=== PATIENT | female | born 1950 | race African-American/Black ===

== ENCOUNTER 2016-11-15 13:36 | Emergency (ER) | payer MEDICARE ==
[2016-11-15] MEDS ORDERED: HYDROcodone/Acetaminophen 7.5/325 mg Tablet ONE ×2 (14:06→14:10)
--- NOTE | 2016-11-15 15:44 | PICIS ---
[facility] EMERGENCY RECORD TRIAGE (13:47 LCAS) TRIAGE NOTES: chronic issue that developed 10-15years. Wednesday had injection. patient reports been given Tylenol #4, but not working anymore. reports that the doctor won't give her pain meds anymore. patient reports she has come here today for relief. (13:47 LCAS) PATIENT: NAME: Casper Orellana, AGE: 65, GENDER: female, : Mon 1950, TIME OF GREET: Sun Nov 15, 2016 13:37, PREFERRED LANGUAGE: Estonian, ETHNICITY: Not or , ECODE BILLING MAP: [facility], SSN: [id number], Zip Code: [address], KG WEIGHT: 95.25, PHONE: , , , PERSON ID: [id number]. (13:47 LCAS) COMPLAINT: BACK PAIN. (13:47 LCAS) ADMISSION: URGENCY: 3 Urgent, ADMISSION SOURCE: Home, TRANSPORT: CAR, BED: ER -02. (13:47 LCAS) ASSESSMENT: Assessment: patient ambulates with a cane. reports that pain shoots down her leg. (13:51 LCAS) SIRS SCORING: Heart Rate 55-109 (0), Temp range 96.8-101.1 (0), respiratory rate 12-24 (0), Mental Status altered: no (0), Infection or Suspected Infection: No. (13:51 LCAS) TRIAGE SCREENING: Patient denies suicidal ideation, Patient denies presence of domestic violence. (13:51 LCAS) PROVIDERS: TRIAGE NURSE: Anali Bautista RN. (13:47 LCAS) PREVIOUS VISIT ALLERGIES: No Known Drug Allergies. (13:47 LCAS) No Known Drug Allergies. (13:51 LCAS) KNOWN ALLERGIES No Known Drug Allergies CURRENT MEDICATIONS (13:48 LCAS) allopurinol: TABLET : Strength - 100 mg : ORAL Patient Dose: 200 mg Oral once a day. ranitidine HCl: CAPSULE : Strength - 150 mg : ORAL Patient Dose: 150 mg Oral 2 times a day. gabapentin: CAPSULE : Strength - 300 mg : ORAL Patient Dose: 1 tab(s) Oral 3 times a day. Protonix: TABLET, DELAYED RELEASE (ENTERIC COATED) : Strength - 40 mg : ORAL Patient Dose: 40 mg Oral once a day. predniSONE: TABLET : Strength - 20 mg : ORAL Patient Dose: 40 mg Oral once a day. VITAL SIGNS VITAL SIGNS: BP: 134/75, Pulse: 71, Resp: 72, Temp: 98.7 (Oral), Pain: 8, O2 sat: 100 on Room Air, Time: 11/15/2016 13:48. (13:48 LCAS) &a-1R&a+25V*p+0X*j4198Q*c202B*c15G*c2P*p-0X&a-25V&a+1R Name: Casper Orellana : 1950 F65 MedRec: [id number] AcctNum: [id number] Prepared: Edith Nov 15, 2016 15:45 by Interface Page 1 of 8 pMD [facility] EMERGENCY RECORD BP: 134/75, Pulse: 71, Resp: 20, Temp: 98.7 (Oral), Pain: 8, O2 sat: 100 on Room Air, Time: 11/15/2016 13:48. (13:48 MCBE) BP: 121/84, Pulse: 76, Resp: 18, Temp: 98.0, Pain: 3, O2 sat: 97 on RA, Time: 11/15/2016 15:41. (15:41 MCBE) NURSING ASSESSMENT: HEAD-TO-TOE (14:00 MCBE) CONSTITUTIONAL: Complex assessment performed, Patient arrives ambulatory, Gait steady, History obtained from patient, Patient appears comfortable, Patient cooperative, Patient alert, Oriented to person, place and time, Skin warm, Skin dry, Skin normal in color, Mucous membranes pink, Mucous membranes moist, Patient is well-groomed. PAIN: Patient rates pain as 0 out of 10. NEURO: Pupils equally round and reactive to light, Able to close eyes, Face symmetrical, Speech normal, GCS:, Eye opening: (4) - Spontaneous, Verbal: (5) - Oriented/conversive, Motor: (6) - Obeys commands/Spontaneous, GCS Total: 15. ENT: Ear assessment findings include ear normal to inspection, Nasal assessment findings include nose normal to inspection, Mouth and throat assessment findings include mouth inspection normal. RESPIRATORY/CHEST: Breath sounds clear, Respiratory assessment findings include respiratory effort easy, Respirations regular, Conversing normally, Neck and chest exam findings include trachea midline, Chest expansion equal, Chest movement symmetrical, no signs of distress, no retractions noted. CARDIOVASCULAR: Cardiovascular assessment findings include heart rate normal, Heart rhythm normal sinus, Heart sounds normal, S1, S2, Left radial pulse +3(easily palpated, considered normal), Right radial pulse +3(easily palpated, considered normal). ABDOMEN: Abdomen assessment findings include abdomen symmetrical, Abdomen soft, tender, to the epigastric region, Bowel sound normal, no associated nausea, no associated vomiting, no associated diarrhea, no associated constipation. LEFT UPPER EXTREMITY: Left upper extremity assessment findings include capillary refill less than 2 seconds, Skin color normal to hand, Skin temperature to hand warm, Distal sensation intact, Muscle tone normal, radial pulse is +3, brachial pulse is +3, Inspection findings include: No pressure ulcer to the shoulder, Inspection findings include no pressure ulcer to the elbow, Inspection findings include no pressure ulcer. RIGHT UPPER EXTREMITY: Right upper extremity assessment findings include capillary refill less than 2 seconds, Skin color normal to hand, Skin temperature to hand warm, Distal sensation intact, Muscle tone normal, radial pulse is +3, brachial pulse is +3, Inspection findings include: No pressure ulcer to the shoulder, Inspection findings include no pressure ulcer to the elbow, Inspection findings include no pressure ulcer. LEFT LOWER EXTREMITY: Left lower extremity assessment findings include capillary refill less than 2 seconds, Skin color normal, Skin temperature warm, Distal sensation intact, Muscle tone normal, &a-1R&a+25V*p+0X*z9151M*c202B*c15G*c2P*p-0X&a-25V&a+1R Name: Casper Orellana : 1950 F65 MedRec: [id number] AcctNum: [id number] Prepared: Edith Nov 15, 2016 15:45 by Interface Page 2 of 8 pMD [facility] EMERGENCY RECORD Inspection findings include no pressure ulcers to the hip, Inspection findings include no pressure ulcer to the sacrum, Inspection findings include no pressure ulcer to the heel, Inspection findings include no pressure ulcer. RIGHT LOWER EXTREMITY: Right lower extremity assessment findings include capillary refill less than 2 seconds, Skin color normal, Skin temperature warm, Distal sensation intact, Muscle tone normal, Inspection findings include no pressure ulcers to the hip, Inspection findings include no pressure ulcer to the sacrum, Inspection findings include no pressure ulcer to the heel, Inspection findings include no pressure ulcer. NURSING PROCEDURE: DISCHARGE NOTE (15:41 MCBE) DISCHARGE: Patient discharged to home, ambulating without assistance, family driving, accompanied by other family member, Summary of Care printed/ provided, Discharge instructions given to patient, Simple or moderate discharge teaching performed, by CIERA FINCH, EXPLAINED DISCHARGE INSTRUCTIONS. INSTRUCTED TO RETURN IF S/S WORSEN, Prescriptions given and instructions on side effects given, Name of prescription(s) given: TYLENOL 4, Above person(s) verbalized understanding of discharge instructions and follow-up care. BELONGINGS: Belongings and valuables with patient upon arrival to the Emergency Department include:, Belongings and valuables with patient at time of discharge include:, pants, shirt, shoes, Belongings remain with patient, Valuables remain with patient. VITAL SIGNS: BP: 121, / 84, Pulse: 76, Resp: 18, Temp: 98.0, Pain: 3, O2 sat: 97, on: RA, Time: 1540. NURSING PROCEDURE: NURSE NOTES (13:53 MCBE) NURSES NOTES: Notes: ANALI RN DID NOT TRIAGE THIS PATIENT. NURSING PROCEDURE: TRANSPORT TO TESTS (15:12 CCRI) TRANSPORT TO TESTS: Patient transported to CT scan, via cart, Accompanied by x-ray furniture repair technician, Patient arrived in location at 15:00, Patient departed location at 15:10. ORDER DETAILS Order Name: CT Abdomen Pelvis WO Con, Status: Active, Time: 14:02 11/15/2016, User: JAYLEEN, - Ordered for: MD Claros John, - Entered by: MD Claros John - Sun Nov 15, 2016 14:02, - Quantity: 1. MEDICATION ADMINISTRATION SUMMARY Drug Name: *Selmer, Dose Ordered: 1 tab(s), Route: Oral, Status: Given, Time: 14:11 11/15/2016, *Additional information available in &a-1R&a+25V*p+0X*k8196C*c202B*c15G*c2P*p-0X&a-25V&a+1R Name: Casper Orellana : 1950 F65 MedRec: [id number] AcctNum: [id number] Prepared: Edith Nov 15, 2016 15:45 by Interface Page 3 of 8 pMD [facility] EMERGENCY RECORD notes, Detailed record available in Medication Service section. MEDICATION SERVICE (14:11 ) Selmer: Order: Selmer (hydrocodone bitartrate/acetaminophen) - Dose: 1 tab(s) : Oral Schedule: Now Notes: 7.5/325mg PO X 1 Ordered by: Aman Claros MD Entered by: MD Edith Pool Nov 15, 2016 14:03 , Acknowledged by: Ciera Sahrma Nov 15, 2016 14:05 Documented as given by: Ciera Sharma Nov 15, 2016 14:11 Patient, Medication, Dose, Route and Time verified prior to administration. Amount given: 1 TAB, Site: Medication administered P.O., Patient appears Awake and alert- acceptable, Correct patient, time, route, dose and medication confirmed prior to administration, Patient advised of actions and side-effects prior to administration, Allergies confirmed and medications reviewed prior to administration, Patient in position of comfort, Side rails up, Cart in lowest position, Call light in reach. HPI BACK (15:00 ) CHIEF COMPLAINT: Patient presents for evaluation of pain, to the lower back. HISTORIAN: History provided by patient, Pt. reports chronic lower back pain for many years, previously taking Tylenol #4. Had back injection earlier this week (Wednesday), and snce then has not yet had improvement from the pain. States her pain management doctor took her off of the narcotics, and she feels she needs to be on it, so she came to ED. Reports today's pain is same location and nature of pain she has had previously, but does note when pain was at its worst last night she felt some radiating to the lower abdomen. It also shoots down the back of both legs, and is associated with some numbness of the legs. Patient denies F&C, N&V, perineal numbness, loss of bowel/bladder function, and IVDA. No falls or trauma. Pain worse with standing and sitting, but not relieved by lying down. MECHANISM OF INJURY: No apparent mechanism of injury. LOCATION: Symptoms are generalized. QUALITY: Pain is sharp in nature, described as shooting. SEVERITY: Maximum severity of symptoms severe, Currently symptoms are severe. TIME COURSE: Gradual onset of symptoms, Symptoms are worsening, Symptoms are constant. ASSOCIATED WITH: Associated with abdominal pain, No associated bladder incontinence, No associated bowel incontinence, No associated dysuria, No associated fever, No associated inability to ambulate, No associated motor weakness, Associated with numbness, No associated problems with urination, Associated with radiation of pain, Associated with sciatica, bilaterally, No associated tingling, Denies any other complaints. EXACERBATED &a-1R&a+25V*p+0X*a6291Z*c202B*c15G*c2P*p-0X&a-25V&a+1R Name: Casper Orellana : 1950 F65 MedRec: [id number] AcctNum: [id number] Prepared: Edith Nov 15, 2016 15:45 by Interface Page 4 of 8 pMD [facility] EMERGENCY RECORD BY: Patient's condition exacerbated by upright position, Patient's condition exacerbated by walking. RELIEVED BY: Patient's condition relieved by prescription medications. RISK FACTORS: Risk factors reviewed, Herniated disc risks:, History of herniated disc, Risk factors for thoracic aortic dissection include, hypertension, no first degree relative, not , no Jackson's syndrome, no aortic disease, no Marfan's syndrome, no Radha Danlos syndrome, Abdominal aortic aneurysm risk factors, include hypertension, Epidural bleed risk factors include recent epidural injection or spinal anesthesia, Epidural abcess risk factors include diabetes. ROS (15:05 JAYLEEN) CONSTITUTIONAL: Historian denies chills, denies fatigue, denies fever, denies malaise. EYES: Historian denies eye pain, denies vision changes. ENT: Historian denies otalgia, denies rhinorrhea, denies sore throat. CARDIOVASCULAR: Historian denies chest pain, denies edema, denies syncope, denies palpitations. RESPIRATORY: Historian denies cough, denies shortness of breath, denies wheezing. GI: Historian reports abdominal pain, denies constipation, denies diarrhea, denies hematemesis, denies hematochezia, denies melena, denies nausea, denies vomiting. GENITOURINARY FEMALE: Historian denies dysuria, denies frequency, denies hematuria, denies incontinence, denies urgency, denies urine output changes, denies urinary retention. MUSCULOSKELETAL: Historian reports back pain, denies fall, denies myalgias, denies neck pain. SKIN: Historian denies rash, denies skin changes, denies skin lesions. NEUROLOGIC: Historian denies dizziness, denies focal weakness, denies gait changes, denies headache, denies paralysis, reports paresthesias, denies seizures, reports sensory changes. NOTES: All systems reviewed, negative except as described above. PAST MEDICAL HISTORY (13:51 LCAS) MEDICAL HISTORY: Flu vaccine not up to date, Tetanus not up to date, Pneumococcal vaccine not up to date, ARTHRITIS Notes: DIALYSIs Past medical history includes renal disease, end stage renal disease, diaysis tue, radhames, sat. Past medical history includes cardiac history, congestive heart failure Past medical history includes history of diabetes, Type II, Past medical history includes history of hypertension, which has been treated, Past medical history includes musculoskeletal disorder, gout, osteoarthritis. Past medical history includes musculoskeletal disorder, rheumatoid arthritis. &a-1R&a+25V*p+0X*x8766I*c202B*c15G*c2P*p-0X&a-25V&a+1R Name: Casper Orellana : 1950 F65 MedRec: [id number] AcctNum: [id number] Prepared: Edith Nov 15, 2016 15:45 by Interface Page 5 of 8 pMD [facility] EMERGENCY RECORD FEMALE SURGICAL HISTORY: DIALYSIS GRAFT R arm, Surgical history of hysterectomy, Surgical history of orthopedic surgery, 1998 R IGHT BREAST LUMP REMOVED, Surgical history of cholecystectomy, Date of surgery 1977, Surgical history of hysterectomy, Date of surgery 1967, Surgical history of orthopedic surgery, TOTAL HIPS BILAT, Date of surgery 2004. Right femur post fracture 2013, cervical spine repair with plates and screws. PSYCHIATRIC HISTORY: Psychiatric history includes, depression. SOCIAL HISTORY: Patient denies alcohol use, Patient currently uses tobacco, chews tobacco, Patient denies alcohol use, Patient denies drug use. FAMILY HISTORY: Family history is non-contributory to this case. PHYSICAL EXAM (15:06 JOHE) CONSTITUTIONAL: Vital Signs Reviewed, Patient appears non toxic, Patient alert and oriented to person, place and time. HEAD: Head exam normal, no Allen's sign, No racoon sign, No contusions, no abrasions, No Lacerations, normocephalic. EYES: Eye exam normal, Eye exam included findings of eyelids normal to inspection, Pupils equally round and reactive to light, Extraocular muscles intact, Conjunctiva normal, Sclera normal. NECK: Neck exam normal, Neck exam included findings of normal range of motion, no carotid bruits, no tenderness, no abrasions, no contusions, no ecchymosis. RESPIRATORY CHEST: Respiratory and chest exam normal, Respiratory exam included findings of no respiratory distress, Breath sounds clear, No wheezing, No rales, No rhonchi, Breath sounds not absent, Breath sounds not diminished, Chest exam included findings of chest movement symmetrical, Chest expansion equal, CTAB. CARDIOVASCULAR: Cardiovascular assessment normal, Cardiovascular exam included findings of heart rate regular rate and rhythm, Pedal pulses normal, RRR, 2/6 sys. murmur LUSB, no R/G. + pulses all ext., no edema. ABDOMEN FEMALE: Abdominal exam included findings of abdomen tender, Bowel sounds normal, no mass, no peritoneal signs, no rigidity, no guarding, no rebound, Patient reports chronic epigastric tenderness (unchanged per patient), and patient reports palpation of the lower abdomen makes her back pain worse. No guarding or rebound. + BS. No CVAT. BACK: Back exam included findings of normal inspection, range of motion normal, Tenderness, no costovertebral angle tenderness, Diffuse lower back tenderness without point midline back tenderness. No crepitus, deformities, swelling, bruising or step-offs. + SLR bilaterally. UPPER EXTREMITY: Upper extremity exam normal, Upper extremity exam included findings of inspection normal, Range of motion normal, Motor strength normal, Sensation intact, Radial pulse normal. &a-1R&a+25V*p+0X*p8085C*c202B*c15G*c2P*p-0X&a-25V&a+1R Name: Casper Orellana : 1950 F65 MedRec: [id number] AcctNum: [id number] Prepared: Edith Nov 15, 2016 15:45 by Interface Page 6 of 8 pMD [facility] EMERGENCY RECORD LOWER EXTREMITY: Lower extremity exam normal, Lower extremity exam included findings of inspection normal, Range of motion normal, Motor strength normal, Sensation intact, Posterior tibial pulse normal, Pedal pulse normal. NEURO: Neuro exam normal, Neuro exam findings include patient oriented to person, place and time, Speech normal, Gait normal, Memory normal, Cranial nerves intact, Deep tendon reflexes normal, no focal motor deficits, no focal sensory deficits, Str. 5/5 all ext., sensation intact light touch all ext., reflexes 1-2+/4 equal bilateral Achilles and patellas. SKIN: Skin exam normal, Skin exam included findings of skin warm, dry, and normal in color, no rash. EVENTS TRANSFER: Triage to Emergency Emergency Room -02. (Edith Nov 15, 2016 13:47 LCAS) Removed from Emergency Emergency Room -02. (15:43 MCBE) RADIOLOGYINTERPRETATION ABDOMEN: Abdomen/pelvis CT scan, without contrast negative, no abdominal aortic aneurysm, no appendicitis, no diverticulitis, no kidney stones, no injuries, no obstruction, no free air, no hydronephrosis, 2.3 cm right breast mass; atrophic kidneys; no acute abdomen/pelvis abnml. (15:19 JOHE) BAR ASSISTANT: Preliminary review of CT scans by, Radiologist. (15:20 JOHE) DOCTOR NOTES RE-EVALUATION: The patient's condition has improved. (15:00 JOHE) TEXT: Pt. reports pain better after meds, wants to go home. Discussed I would like to see CT given report of abdominal pain, despite patient's insistence that this is the same pain she has had in the past. (15:00 JOHE) Pt. reports feeling so much better. Discussed results, and need for outpatient mammography regarding breast lesion. Discussed treatment for low back pain, close f/u with her pain management for more medications as needed (15 tablets given to get her through the rest of the weekend). Discussed warning signs of back/abdominal pain for when to return to ED. Patient queried on the [facility] aware website, and patient was only getting narcotics from her pain management physician, and none since 08/2016. (15:33 JOHE) DATA REVIEWED: Xray data reviewed. (15:33 JOHE) PROBLEM LIST No recorded problems DIAGNOSIS (15:20 ) FINAL: PRIMARY: lumbar radiculopathy. DISPOSITION &a-1R&a+25V*p+0X*r9820A*c202B*c15G*c2P*p-0X&a-25V&a+1R Name: Casper Orellana : 1950 F65 MedRec: [id number] AcctNum: [id number] Prepared: Edith Nov 15, 2016 15:45 by Interface Page 7 of 8 pMD [facility] EMERGENCY RECORD PATIENT: Disposition Type: Discharge, Disposition: *Discharge Home, Condition: Good. (15:20 ) Patient left the department. [place]15:[place] [facility] [place]CTION (15:) DISCHARGE: LUMBAR RADICULOPATHY, BACK PAIN W/ SCIATICA. FOLLOWUP: MD Luis, Radha, Internal Medicine, [address] [place] [address], [address], [facility] [address], [phone], Follow up with Primary Care Physician in 2-3 days. SPECIAL: Follow-up with your PCP, and your pain management doctor. Return to ED for worsening pain, fever, abdominal pain, new numbness/tingling/weakness, loss of control of your bowel/bladder, numbness in the private areas, or any other new/worsening symptoms. PRESCRIPTION (15:) Tylenol-Codeine #4: TABLET : 300 mg-60 mg : ORAL : Quantity: 1 Unit: tab(s) Route: ORAL Schedule: every 6 hours PRN Dispense: 15 Unit: tab(s) May substitute. Refills: No Refills . NOTES: No Refills. IMAGING [place]15:43 [facility] [place] *DISCHARGE INSTRUCTIONS RECEIPT: Image captured from scanner. *SUPPLY CHARGE SHEET: Image captured from scanner. [facility] DIGITAL SIGNATURE: MD Hyacinth, Aman. Christina: CCRI=PETTY [place] JOHE=MD Claros John LCAS=STEF Bautista Lindsey MCBE=Ciera Rdz &a-1R&a+25V*p+0X*y8782Z*c202B*c15G*c2P*p-0X&a-25V&a+1R Name: Casper Orellana : 1950 F65 MedRec: [id number] AcctNum: [id number] Prepared: Edith Nov 15, 2016 15:45 by Interface Page 8 of 8 pMD MTDD
--- NOTE | 2016-11-15 16:01 | CT ---
CT OF THE ABDOMEN AND PELVIS WITHOUT CONTRAST: Comparison: 08-18-15 History: Abdominal pain that radiates to the back. Patient has had chronic pain all over for 10-15 years. Technique: Multiple contiguous axial images were obtained in a CT of the abdomen and pelvis without contrast. [place] reformats were performed. FINDINGS: The gallbladder is not seen and may have been removed. The liver, adrenal glands and pancreas are u nremarkable although evaluation is limited without IV contrast. The; kidneys are small and atrophic . Calcifications in the spleen are likely from prior granulomatous disease. The large and small bowel are unremarkable. Evaluation of the pelvis is limited secondary to bilate ral hip arthroplasty which produce streak artifact limiting evaluation of the pelvis. Dense calcifications are seen in the aorta and its branch vessels. There is diffuse sclerosis of th e visualized bones and there is fusion of the sacroiliac joints. Abdominal wall soft tissues are un remarkable. There is a 2.3 cm well circumscribed mass in the right breast is not definitely seen on the prior ex amination, although this exam did not extend as far superiorly. The visualized lower lungs are unre markable. IMPRESSION: 1. No evidence of acute intraabdominal/pelvic abnormality. 2. Atrophic kidneys. 3. Right breast mass. Further evaluation with mammography and ultrasound is recommended. Correlat e with history of mammography. This can be performed on a non-emergent outpatient basis. POS: [facility]
== END 2016-11-15 15:40 | disposition home or self-care (01) ==
LOC: NAV ERS 13:36
DX: M54.16 Radiculopathy, lumbar region (principal); E11.9 Type 2 diabetes mellitus without complications; M06.9 Rheumatoid arthritis, unspecified; I50.9 Heart failure, unspecified
CPT/HCPCS: 74176

== ENCOUNTER 2017-09-19 14:02 | Emergency (ER) | payer MEDICARE ==
--- NOTE | 2017-09-19 16:14 | RAD ---
RIGHT KNEE 4 VIEWS: Date: 09/19/17 INDICATION: Right knee pain for 2 weeks. FINDINGS: There is partially imaged hardware traversing the distal femur with deformity related to remote traum atic injury partially imaged within the distal right femur. Within the imaged aspects, no obvious akbar dware complication is seen. Incidental note of vascular calcifications. IMPRESSION: Postoperative distal right femur. No obvious acute osseous abnormality at the level of the knee. POS: [facility]
== END 2017-09-19 15:32 | disposition home or self-care (01) ==
LOC: NAV ERS 14:02
DX: M25.561 Pain in right knee (principal); E11.9 Type 2 diabetes mellitus without complications; I13.2 Hypertensive heart and chronic kidney disease with heart failure and with stage 5 chronic kidney disease, or end stage renal disease; I50.9 Heart failure, unspecified; N18.6 End stage renal disease; Z99.2 Dependence on renal dialysis; F32.9 Major depressive disorder, single episode, unspecified; F17.220 Nicotine dependence, chewing tobacco, uncomplicated

== ENCOUNTER 2018-03-07 10:05 | Emergency (ER) | payer MEDICARE ==
[2018-03-07 11:40] LABS: #Basophils 0.1 thou/uL (0.0-0.2); #Eosinphils 0.1 thou/uL (0.0-0.7); #Lymphocytes 1.1 thou/uL (1.20-3.40); #Monocytes 0.9 thou/uL (0.11-0.59); #Neutrophils 5.1 thou/uL (1.40-6.50); %Basophils 1.4 % (0.0-1.0); %Eosinophils 1.7 % (0.0-10.0); %Lymphocytes 14.4 % (21.0-51.0); %Monocytes 12.9 % (0.0-10.0); %Neutrophils 69.6 % (42.0-75.0); Hemoglobin 11.6 g/dL (12.0-16.0); Mean Corpuscular HGB CONC 30.1 g/dL (32.0-36.0); Mean Corpuscular Hemoglobin 29.1 pg (27.0-31.0); Mean Corpuscular Volume 96.8 fl (81.0-99.0); Platelet Count 209 thou/uL (130-400); RBC Distribution Width 13.9 % (11.5-14.5); Red Blood Cell (RBC) Count 3.97 mill/uL (4.20-5.40); White Blood Cell (WBC) Count 7.3 thou/uL (4.8-10.8)
[2018-03-07 11:49] LABS: ALT (SGPT) 26 U/L (8-55); AST (SGOT) 13 U/L (5-34); Albumin 3.4 g/dL (3.4-4.8); Alkaline Phosphatase 356 U/L (40-150); Anion Gap 17 mmol/L (10-20); BUN (Urea Nitrogen) 26 mg/dL (9.8-20.1); Bilirubin, Total 0.5 mg/dL (0.2-1.2); Calc. Creatinine Clearance 0 mL/min (70-130); Carbon Dioxide 32 mmol/L (23-31); Chloride 95 mmol/L (98-107); Estimated GFR-MDRD 10; Globulin 3.1 g/dL (2.4-3.5); Glucose 86 mg/dL (80-115); Potassium 3.7 mmol/L (3.5-5.1); Protein, Total 6.5 g/dL (6.0-8.3); Sodium 140 mmol/L (136-145)
[2018-03-07] MEDS ORDERED: Lidocaine 1% 20 ML MDV ONE (13:49)
--- NOTE | 2018-03-07 13:51 | RAD ---
CHEST 1 VIEW: COMPARISON: 02/03/16. History Neck pain. Fever. FINDINGS: Enlarged cardiac silhouette. The pulmonary vessels are prominent. Patchy interstitial opacities. N o masses or consolidation. No pneumothorax. No osseous abnormalities. IMPRESSION: Cardiomegaly. Pulmonary vascular congestion. Interstitial opacities. Congestive heart failure. POS: [facility]
[2018-03-07] MEDS ORDERED: Cefepime 1 GM VIAL ONE ×3 (14:25→14:53)
[2018-03-07] MEDS ORDERED: Sodium Chloride 0.9% 0 ML ONE (14:26)
[2018-03-07] MEDS ORDERED: Cefepime 2 GM VIAL ONE (14:29)
[2018-03-07] MEDS ORDERED: Sodium Chloride 0.9% 100 ML ONE (14:31)
[2018-03-07] MEDS ORDERED: Sodium Chloride 0.9% 250 ML 250 ML ONE (14:56)
[2018-03-07] MEDS ORDERED: Fentanyl 100 MCG/2 ML VIAL ONE (15:18)
== END 2018-03-07 15:36 | disposition short-term general hospital (02) ==
LOC: NAV ERS 10:05
DX: M54.2 Cervicalgia (principal); R50.9 Fever, unspecified; I13.2 Hypertensive heart and chronic kidney disease with heart failure and with stage 5 chronic kidney disease, or end stage renal disease; N18.6 End stage renal disease; Z99.2 Dependence on renal dialysis; I50.9 Heart failure, unspecified; E11.9 Type 2 diabetes mellitus without complications; M10.9 Gout, unspecified; F32.9 Major depressive disorder, single episode, unspecified; F17.220 Nicotine dependence, chewing tobacco, uncomplicated; Z79.899 Other long term (current) drug therapy; Z79.82 Long term (current) use of aspirin
CPT/HCPCS: 71045; 80053; 83605; 85025; 87040; 87804; 96365; 96375; J0692; J2001; J3010; J3370; J7050

== ENCOUNTER 2018-07-09 12:24 | Emergency (ER) | payer MEDICARE | END 2018-07-09 13:12 | disposition home or self-care (01) | LOC: NAV ERS 12:24 | DX: K02.9 Dental caries, unspecified (principal); M10.9 Gout, unspecified; E11.22 Type 2 diabetes mellitus with diabetic chronic kidney disease; I13.2 Hypertensive heart and chronic kidney disease with heart failure and with stage 5 chronic kidney disease, or end stage renal disease; I50.9 Heart failure, unspecified; N18.6 End stage renal disease; Z99.2 Dependence on renal dialysis; F32.9 Major depressive disorder, single episode, unspecified; F17.220 Nicotine dependence, chewing tobacco, uncomplicated; Z79.899 Other long term (current) drug therapy; Z79.82 Long term (current) use of aspirin | CPT/HCPCS: 99283 ==

== ENCOUNTER 2018-11-07 15:12 | Emergency (ER) | payer MEDICARE ==
--- NOTE | 2018-11-07 16:42 | RAD ---
LEFT KNEE 4 VIEWS: Date: 11/07/18 INDICATION: Left knee pain. COMPARISON: None. FINDINGS: There is moderate to severe osteoarthrosis of the left knee. There is chondrocalcinosis involving the fibrocartilage and hyaline cartilage of the left knee. No joint capsular distention is evident. Ther e are vascular calcifications seen within the posterior soft tissues. IMPRESSION: 1. Moderate to severe osteoarthrosis of the left knee. 2. Chondrocalcinosis. POS: [facility]
--- NOTE | 2018-11-07 16:47 | RAD ---
LEFT HIP 3 VIEWS: Date: 11/07/18 INDICATION: Fall with left hip pain. FINDINGS: There is diffuse osteopenia. There is a left total hip prosthesis in place. There is some increased d ensity seen along the distal aspect of the femoral stem which can be seen with loosening. No definite acute fracture is evident. IMPRESSION: Increased sclerosis seen along the distal tip of the left femur adjacent to the left prosthesis stem can be seen with loosening. No acute fracture is evident. POS: [facility]
--- NOTE | 2018-11-07 16:48 | CT ---
NONCONTRAST CT OF THE BRAIN: Date: 11/07/18 INDICATION: History of head pain after fall. COMPARISON: Prior exam dated 03/08/18. FINDINGS: No acute infarct, hemorrhage, or hydrocephalus is present. Septum pellucidum and third ventricle are midline. The mastoid air cells are clear. The paranasal sinuses are clear. Skull is intact. IMPRESSION: No acute intracranial abnormality demonstrated. POS: [facility]
--- NOTE | 2018-11-07 17:08 | CT ---
CT CERVICAL SPINE NONCONTRAST: DATE: 11/07/2018 TIME: 4:09 p.m. HISTORY: A 67-year-old female with cervicalgia. COMPARISON: 03/08/2018 FINDINGS: There are laminectomy defects at all levels from C2-C3 through C6-C7. There are bilateral posterior element screws at all levels from C3 through C7. There is ankylosis between the vertebral bodies at all levels from C3-C4 through C6-C7. There is also ankylosis of all facet joints bilaterally from C3 -C4 through C6-C7. There is irregularity of endplates and disk space narrowing throughout all those levels, with partial osseous bridges. At C2-C3 and C7-T1, there is somewhat severe irregularity of t he endplates, with numerous tiny osseous defects, which have somewhat worsened since 03/08/2018. Ther e is no other interval change overall. There are bilateral uncinate process osteophytes that encroac h upon the neural foramina, to varying degrees at all levels, but no severe neural foraminal stenosis identified at any level. Bony hypertrophy of the posterior endplates encroach upon the ventral aspe ct of the thecal sac at all levels, but the laminectomy defects accommodate them, such that there is no severe high-grade central canal stenosis at any level. Vertebral body heights are maintained. Th e bilateral C2-C3 and C7-T1 facet joints are normal. All the bones have a diffuse sclerotic, ground- glass appearance. Given the history of chronic dialysis, this probable represents renal osteodystrop hy. The thyroid gland is enlarged by a multinodular goiter. No acute fracture or subluxation is linda ntified. IMPRESSION: 1. Status post laminectomies and posterior element fusion hardware throughout almost all levels. 2. 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 3. High-grade discogenic degenerative changes at C2-C3 and at C7-T1 have worsened since 03/08/2018. 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 4. Evidence for metabolic bone disease: Renal osteodystrophy. 5. Multinodular goiter. 6. No acute fracture. 7. No high-grade central spinal canal stenosis or high-grade neural foraminal stenosis at any level. SENIA Fairchild POS: [facility]
== END 2018-11-07 17:15 | disposition home or self-care (01) ==
LOC: NAV ERS 15:12
DX: S00.83XA Contusion of other part of head, initial encounter (principal); S70.02XA Contusion of left hip, initial encounter; M25.562 Pain in left knee; N18.6 End stage renal disease; I13.2 Hypertensive heart and chronic kidney disease with heart failure and with stage 5 chronic kidney disease, or end stage renal disease; E11.22 Type 2 diabetes mellitus with diabetic chronic kidney disease; I50.9 Heart failure, unspecified; Z99.2 Dependence on renal dialysis; M10.9 Gout, unspecified; M06.9 Rheumatoid arthritis, unspecified; F32.9 Major depressive disorder, single episode, unspecified; F17.220 Nicotine dependence, chewing tobacco, uncomplicated; Z79.899 Other long term (current) drug therapy; Z79.82 Long term (current) use of aspirin; W01.0XXA Fall on same level from slipping, tripping and stumbling without subsequent striking against object, initial encounter
CPT/HCPCS: 70450; 72125

== ENCOUNTER 2019-09-23 10:47 | Emergency (ER) | payer MEDICARE ==
--- NOTE | 2019-09-23 11:33 | RAD ---
Exam: Left hip 2 views AP pelvis one view: HISTORY: Left hip pain, status post total hip prosthesis COMPARISON: 1. 30/05/2019 FINDINGS: Bilateral total hip replacement changes. No evidence for dislocation or periprostatic fracture IMPRESSION: Bilateral total hip replacement changes. No dislocation. No periprostatic fracture or other acute pro cess.
[2019-09-23] MEDS ORDERED: Ketorolac Tromethamine 30 MG/ML VIAL ONE (12:05)
[2019-09-23] MEDS ORDERED: Cyclobenzaprine 10 MG TAB ONE (12:28)
== END 2019-09-23 12:39 | disposition home or self-care (01) ==
LOC: NAV ERS 10:47
DX: S73.102A Unspecified sprain of left hip, initial encounter (principal); I13.0 Hypertensive heart and chronic kidney disease with heart failure and stage 1 through stage 4 chronic kidney disease, or unspecified chronic kidney disease; I50.9 Heart failure, unspecified; N18.9 Chronic kidney disease, unspecified; F17.220 Nicotine dependence, chewing tobacco, uncomplicated; M10.9 Gout, unspecified; M62.838 Other muscle spasm; F32.9 Major depressive disorder, single episode, unspecified; E11.9 Type 2 diabetes mellitus without complications; Z99.2 Dependence on renal dialysis; Z79.891 Long term (current) use of opiate analgesic; Z79.899 Other long term (current) drug therapy; Z79.82 Long term (current) use of aspirin; X58.XXXA Exposure to other specified factors, initial encounter
CPT/HCPCS: 96372; J1885

== ENCOUNTER 2019-10-12 13:19 | Emergency (ER) | payer MEDICARE ==
--- NOTE | 2019-10-12 14:41 | RAD ---
AP PELVIS: HISTORY: Fall. Right leg pain. COMPARISON: 11/14/2013 FINDINGS: There are postop changes of bilateral hip arthroplasties in good position and alignment. Patent screw s are seen, incompletely visualized, along the shaft of the right femur, in good position and alignme nt. No acute fracture or dislocation is identified. POS: [facility]
[2019-10-12] MEDS ORDERED: HYDROcodone/Acetaminophen 5/325 mg Tablet ONE (15:11)
== END 2019-10-12 15:15 | disposition home or self-care (01) ==
LOC: NAV ERS 13:19
DX: S39.011A Strain of muscle, fascia and tendon of abdomen, initial encounter (principal); I13.2 Hypertensive heart and chronic kidney disease with heart failure and with stage 5 chronic kidney disease, or end stage renal disease; N18.6 End stage renal disease; I50.9 Heart failure, unspecified; E11.22 Type 2 diabetes mellitus with diabetic chronic kidney disease; M19.90 Unspecified osteoarthritis, unspecified site; M10.9 Gout, unspecified; M06.9 Rheumatoid arthritis, unspecified; F32.9 Major depressive disorder, single episode, unspecified; F17.220 Nicotine dependence, chewing tobacco, uncomplicated; Z79.82 Long term (current) use of aspirin; Z79.899 Other long term (current) drug therapy; Z99.2 Dependence on renal dialysis; W01.0XXA Fall on same level from slipping, tripping and stumbling without subsequent striking against object, initial encounter
CPT/HCPCS: 72170

== ENCOUNTER 2020-06-03 13:48 | Emergency (ER) | payer MEDICARE ==
[2020-06-03] MEDS ORDERED: HYDROcodone/Acetaminophen 5/325 mg Tablet ONE (15:13)
== END 2020-06-03 15:20 | disposition home or self-care (01) ==
LOC: NAV ERS 13:48
DX: M54.41 Lumbago with sciatica, right side (principal); M19.90 Unspecified osteoarthritis, unspecified site; I13.2 Hypertensive heart and chronic kidney disease with heart failure and with stage 5 chronic kidney disease, or end stage renal disease; I50.9 Heart failure, unspecified; N18.6 End stage renal disease; E11.22 Type 2 diabetes mellitus with diabetic chronic kidney disease; Z99.2 Dependence on renal dialysis; M10.9 Gout, unspecified; M06.9 Rheumatoid arthritis, unspecified; F41.9 Anxiety disorder, unspecified; F32.9 Major depressive disorder, single episode, unspecified; F17.220 Nicotine dependence, chewing tobacco, uncomplicated; Z79.82 Long term (current) use of aspirin; Z79.899 Other long term (current) drug therapy; Z79.1 Long term (current) use of non-steroidal anti-inflammatories (NSAID)
CPT/HCPCS: 99283

== ENCOUNTER 2022-01-01 13:23 | Emergency (ER) | payer MEDICARE ==
[2022-01-01] MEDS ORDERED: Acetaminophen/Codeine 30-300mg Tablet ONE (14:12)
[2022-01-01] MEDS ORDERED: Acetaminophen 325 MG TAB ONE (14:12)
== END 2022-01-01 14:25 | disposition home or self-care (01) ==
LOC: NAV ERS 13:23
DX: M54.41 Lumbago with sciatica, right side (principal); G89.29 Other chronic pain; E11.22 Type 2 diabetes mellitus with diabetic chronic kidney disease; I13.2 Hypertensive heart and chronic kidney disease with heart failure and with stage 5 chronic kidney disease, or end stage renal disease; I50.9 Heart failure, unspecified; N18.6 End stage renal disease; M19.90 Unspecified osteoarthritis, unspecified site; M06.9 Rheumatoid arthritis, unspecified; M10.9 Gout, unspecified; F17.220 Nicotine dependence, chewing tobacco, uncomplicated; Z79.82 Long term (current) use of aspirin; Z79.899 Other long term (current) drug therapy; Z99.2 Dependence on renal dialysis
CPT/HCPCS: 99283

== ENCOUNTER 2022-01-31 17:10 | Emergency (ER) | payer MEDICARE, OTHER ==
[2022-01-31] MEDS ORDERED: Ketorolac Tromethamine 30 MG/ML VIAL ONE (19:24)
== END 2022-01-31 19:46 | disposition home or self-care (01) ==
LOC: NAV ERS 17:10
DX: S93.402A Sprain of unspecified ligament of left ankle, initial encounter (principal); S13.9XXA Sprain of joints and ligaments of unspecified parts of neck, initial encounter; I13.2 Hypertensive heart and chronic kidney disease with heart failure and with stage 5 chronic kidney disease, or end stage renal disease; N18.6 End stage renal disease; I50.9 Heart failure, unspecified; Z99.2 Dependence on renal dialysis; F17.220 Nicotine dependence, chewing tobacco, uncomplicated; E11.9 Type 2 diabetes mellitus without complications; Z79.899 Other long term (current) drug therapy; Z79.82 Long term (current) use of aspirin; V43.52XA Car driver injured in collision with other type car in traffic accident, initial encounter
CPT/HCPCS: 72125; 96372; J1885

== ENCOUNTER 2022-02-09 14:25 | Emergency (ER) | payer OTHER, MEDICARE ==
[2022-02-09] MEDS ORDERED: Ketorolac Tromethamine 30 MG/ML VIAL ONE ×2 (15:48→15:50)
== END 2022-02-09 15:56 | disposition home or self-care (01) ==
LOC: NAV ERS 14:25
DX: S16.1XXA Strain of muscle, fascia and tendon at neck level, initial encounter (principal); R53.83 Other fatigue; M19.90 Unspecified osteoarthritis, unspecified site; I13.2 Hypertensive heart and chronic kidney disease with heart failure and with stage 5 chronic kidney disease, or end stage renal disease; E11.22 Type 2 diabetes mellitus with diabetic chronic kidney disease; I50.9 Heart failure, unspecified; N18.6 End stage renal disease; Z99.2 Dependence on renal dialysis; M06.9 Rheumatoid arthritis, unspecified; Z79.899 Other long term (current) drug therapy; Z79.82 Long term (current) use of aspirin; V89.2XXA Person injured in unspecified motor-vehicle accident, traffic, initial encounter
CPT/HCPCS: 70450; 96372; J1885

== ENCOUNTER 2022-04-02 18:03 | Emergency (ER) | payer MEDICARE ==
[2022-04-02 19:00] LABS: Mean Corpuscular HGB CONC 28.5 g/dL (32.0-36.0); Mean Corpuscular Hemoglobin 30.4 pg (27.0-31.0); Mean Platelet Volume 7.1 fL (7.4-10.4); Platelet Count 182 thou/uL (130-400); RBC Distribution Width 14.1 % (11.5-14.5); Red Blood Cell (RBC) Count 2.94 mill/uL (4.20-5.40); White Blood Cell (WBC) Count 6.4 thou/uL (4.8-10.8)
[2022-04-02 19:08] LABS: ALT (SGPT) 24 U/L (8-55); AST (SGOT) 25 U/L (5-34); Albumin 3.7 g/dL (3.4-4.8); Alkaline Phosphatase 252 U/L (40-110); Anion Gap 23 mmol/L (10-20); BUN (Urea Nitrogen) 30 mg/dL (9.8-20.1); Bilirubin, Total 0.4 mg/dL (0.2-1.2); Calc. Creatinine Clearance 0 mL/min (70-130); Calcium 8.2 mg/dL (7.8-10.44); Carbon Dioxide 27 mmol/L (23-31); Chloride 98 mmol/L (98-107); Globulin 2.2 g/dL (2.4-3.5); Glucose 90 mg/dL (83-110); Potassium 3.7 mmol/L (3.5-5.1); Protein, Total 5.9 g/dL (5.8-8.1); Sodium 144 mmol/L (136-145)
[2022-04-02 19:26] LABS: Anisocytosis SLIGHT = 6-15 cells (100X) (0-5/hpf); Band 6 % (5-11); CKMB 3.2 ng/mL (0-6.6); Lymphocytes 23 % (21-51); MDiff Complete? YES; Macrocytosis MODERATE=16-30 cells (100X) (0-5/hpf); Monocytes 7 % (0-10); Neutrophil 63 % (42-75); Platelet Morphology Comment Appears Adequate; Polychromasia SLIGHT = 2-3 cells (100X) (0-2/hpf)
[2022-04-02] MEDS ORDERED: Aspirin Chewable 81 MG TAB ONE (20:39)
== END 2022-04-02 20:57 | disposition left against medical advice (07) ==
LOC: NAV ERS 18:03
DX: U07.1 COVID-19 (principal); J12.82 Pneumonia due to coronavirus disease 2019; E11.22 Type 2 diabetes mellitus with diabetic chronic kidney disease; I13.2 Hypertensive heart and chronic kidney disease with heart failure and with stage 5 chronic kidney disease, or end stage renal disease; N18.6 End stage renal disease; I50.9 Heart failure, unspecified; D63.1 Anemia in chronic kidney disease; R77.8 Other specified abnormalities of plasma proteins; Z99.2 Dependence on renal dialysis; M10.9 Gout, unspecified; M19.90 Unspecified osteoarthritis, unspecified site; M06.9 Rheumatoid arthritis, unspecified; F17.220 Nicotine dependence, chewing tobacco, uncomplicated; Z79.899 Other long term (current) drug therapy; Z79.82 Long term (current) use of aspirin
CPT/HCPCS: 71045; 80053; 82553; 83605; 84484; 85025; 93005; 94760

== ENCOUNTER 2022-10-24 11:55 | Emergency (ER) | payer OTHER ==
[2022-10-24] MEDS ORDERED: Lorazepam 2 MG/ML VIAL ONE (13:49)
== END 2022-10-24 15:25 | disposition home or self-care (01) ==
LOC: NAV ERS 11:55
DX: M79.604 Pain in right leg (principal); I13.2 Hypertensive heart and chronic kidney disease with heart failure and with stage 5 chronic kidney disease, or end stage renal disease; I50.9 Heart failure, unspecified; N18.6 End stage renal disease; M10.9 Gout, unspecified; F17.220 Nicotine dependence, chewing tobacco, uncomplicated; Z79.899 Other long term (current) drug therapy
CPT/HCPCS: 36415; 85379; 93005; 99283; J2060

== ENCOUNTER 2022-12-21 17:10 | Emergency (ER) | payer OTHER ==
[2022-12-21] MEDS ORDERED: Ketorolac Tromethamine 30 MG/ML VIAL ONE (18:14)
== END 2022-12-21 18:58 | disposition home or self-care (01) ==
LOC: NAV ERS 17:10
DX: M79.651 Pain in right thigh (principal); I13.2 Hypertensive heart and chronic kidney disease with heart failure and with stage 5 chronic kidney disease, or end stage renal disease; E11.22 Type 2 diabetes mellitus with diabetic chronic kidney disease; N18.6 End stage renal disease; I50.9 Heart failure, unspecified; M19.90 Unspecified osteoarthritis, unspecified site; M10.9 Gout, unspecified; M06.9 Rheumatoid arthritis, unspecified; F17.220 Nicotine dependence, chewing tobacco, uncomplicated; Z99.2 Dependence on renal dialysis; Z79.82 Long term (current) use of aspirin; Z79.899 Other long term (current) drug therapy
CPT/HCPCS: 96372; 99283; J1885

== ENCOUNTER 2023-10-10 13:49 | Emergency (ER) | payer OTHER ==
[2023-10-10] MEDS ORDERED: Diazepam 10 MG/2 ML SYRINGE ONE (15:13)
== END 2023-10-10 15:40 | disposition home or self-care (01) ==
LOC: NAV ERS 13:49
DX: S20.219A Contusion of unspecified front wall of thorax, initial encounter (principal); S40.021A Contusion of right upper arm, initial encounter; S39.012A Strain of muscle, fascia and tendon of lower back, initial encounter; I11.0 Hypertensive heart disease with heart failure; I50.9 Heart failure, unspecified; E11.9 Type 2 diabetes mellitus without complications; Z79.899 Other long term (current) drug therapy; Z79.82 Long term (current) use of aspirin; W19.XXXA Unspecified fall, initial encounter
CPT/HCPCS: 71046; 96372; J3360

== ENCOUNTER 2024-07-16 13:29 | Emergency (ER) | payer OTHER ==
[2024-07-16] MEDS ORDERED: guaiFENesin ER 600 MG TAB ONE (13:51)
== END 2024-07-16 15:03 | disposition home or self-care (01) ==
LOC: NAV ERS 13:29
DX: J30.9 Allergic rhinitis, unspecified (principal); R09.82 Postnasal drip; I13.2 Hypertensive heart and chronic kidney disease with heart failure and with stage 5 chronic kidney disease, or end stage renal disease; E11.22 Type 2 diabetes mellitus with diabetic chronic kidney disease; I50.9 Heart failure, unspecified; N18.6 End stage renal disease; F17.220 Nicotine dependence, chewing tobacco, uncomplicated; Z99.2 Dependence on renal dialysis; Z79.82 Long term (current) use of aspirin; Z79.899 Other long term (current) drug therapy
CPT/HCPCS: 87081; 87428; 87430; 99283